=== PATIENT | female | born 1980 | race Caucasian/White ===

== ENCOUNTER 2023-02-03 14:20 | Observation (INO) | payer OTHER ==
[2023-02-03] MEDS ORDERED: ONDANSETRON 4 MG/2 ML VIAL IVPUSH ONE ×2 (14:49→15:05)
[2023-02-03] MEDS ORDERED: SODIUM CHLORIDE 0.9% 1000 ML INFUS.BAG IV ONE ×2 (14:49→15:05)
[2023-02-03] MEDS ORDERED: FAMOTIDINE 20 MG/50 ML IVPB 20 MG/50 ML MG IVPB ONE ×2 (14:49→15:08)
[2023-02-03] MEDS ORDERED: ACETAMINOPHEN 1000 MG/100 ML BAG IVPB ONE (15:05)
[2023-02-03] MEDS ORDERED: ONDANSETRON 4 MG/2 ML VIAL ONE (15:08)
[2023-02-03] MEDS ORDERED: ACETAMINOPHEN INJECTION 100 ML IVPB ONE (15:58)
[2023-02-03 16:18] LABS: INR 1.03 (0.83-1.09)
[2023-02-03 16:32] LABS: HEMATOCRIT 43.7 % (32.4-45.2); HEMOGLOBIN 14.4 G/dL (10.7-15.3); MCH 30.7 pg (25.7-33.7); MCHC 32.9 g/dl (32.0-36.0); MEAN CELL VOLUME 93.4 fl (80-96); MEAN PLT VOLUME 8.1 fl (7.5-11.1); PLATELET COUNT 418.4 10^3/uL (134-434); RBC 4.68 10^6/uL (3.60-5.2); RDW 13.7 % (11.6-15.6); WHITE BLOOD COUNT 11.3 10^3/uL (4.0-10.8)
[2023-02-03 17:33] LABS: ALBUMIN 4.4 g/dl (3.4-5.0); BLOOD UREA NITROGEN 8.6 mg/dl (7-18); CALCIUM 9.5 mg/dl (8.5-10.1); CREATININE 0.7 mg/dl (0.6-1.3); MAGNESIUM 1.8 mg/dL (1.8-2.4); POTASSIUM 4.6 mmol/L (3.5-5.1); SGOT/AST 15.7 U/L (15-37); SGPT/ALT 11.9 U/L (7-52); TOT PROT 6.7 g/dl (6.4-8.2)
[2023-02-03 17:48] LABS: PLATELET ESTIMATE SLT INCREASE
[2023-02-03 17:58] LABS: HCG,QUALITATIVE URINE Negative
[2023-02-03 18:19] LABS: EPITHELIAL CELLS FEW /hpf
[2023-02-03 18:41] LABS: VENOUS BASE EXCESS -0.5 mmol/L (-2-2); VENOUS O2 SATURATION 66.8 % (70-80); VENOUS PCO2 41.7 mmHg (38-52); VENOUS PH 7.388 (7.310-7.410)
[2023-02-03 18:49] LABS: BILIRUBIN,TOTAL 0.3 mg/dL (0.2-1)
[2023-02-03] MEDS ORDERED: ONDANSETRON 4 MG/2 ML VIAL IVPUSH PRN (19:55)
[2023-02-03] MEDS ORDERED: DOCUSATE SODIUM 100 MG CAPSULE (FP) PO PRN (19:55)
[2023-02-03 20:28] LABS: OPIATES, URI NEGATIVE (NEGATIVE)
[2023-02-03 20:29] LABS: PHENCYCLIDINE,URINE NEGATIVE (NEGATIVE)
[2023-02-03 20:34] LABS: COCAINE, UR NEGATIVE (NEGATIVE); METHADONE, UR NEGATIVE (NEGATIVE); URINE AMPHETAMINES NEGATIVE (NEGATIVE); URINE BARBITURATES NEGATIVE (NEGATIVE); URINE BENZODIAZEPINES NEGATIVE (NEGATIVE)
[2023-02-03 21:40] VITALS: BMI 23.4
[2023-02-03] MEDS ORDERED: ACETAMINOPHEN 325 MG TABLET (FP) ONE (21:48)
[2023-02-04] MEDS ORDERED: MONTELUKAST NA 10 MG TABLET PO SCH (00:03)
[2023-02-04] MEDS ORDERED: ALBUTEROL SO4 HFA INHALER IH PRN (00:04)
[2023-02-04 00:18] VITALS: RESP 18
[2023-02-04] MEDS ORDERED: GABAPENTIN 100 MG CAPSULE PO SCH (06:00)
[2023-02-04] MEDS ORDERED: METHOCARBAMOL 500 MG TABLET PO SCH ×2 (06:00→10:00)
[2023-02-04 07:51] LABS: HEMATOCRIT 41.9 % (32.4-45.2); HEMOGLOBIN 13.7 G/dL (10.7-15.3); MCH 30.8 pg (25.7-33.7); MCHC 32.7 g/dl (32.0-36.0); MEAN CELL VOLUME 94.1 fl (80-96); MEAN PLT VOLUME 7.8 fl (7.5-11.1); PLATELET COUNT 385.2 10^3/uL (134-434); RBC 4.45 10^6/uL (3.60-5.2); WHITE BLOOD COUNT 8.1 10^3/uL (4.0-10.8)
[2023-02-04 08:04] LABS: BLOOD UREA NITROGEN 8.6 mg/dl (7-18); CALCIUM 9.4 mg/dl (8.5-10.1); CREATININE 0.7 mg/dl (0.6-1.3); POTASSIUM 4.5 mmol/L (3.5-5.1)
[2023-02-04 09:39] VITALS: BP 110/72; PULSE 66; TEMP 98.4
[2023-02-04] MEDS ORDERED: DULOXETINE HCL PO SCH (10:00)
[2023-02-04] MEDS ORDERED: DULoxetine HCL 20 MG CAPSULE.DR PO SCH (10:00)
[2023-02-04] MEDS ORDERED: ACETAMINOPHEN 325 MG TABLET (FP) PO PRN (19:55)
== END 2023-02-04 12:09 | disposition left against medical advice (07) ==
LOC: FER 14:20 → FM/S 18:23
PROVIDERS: ADMIT Internal Medicine; ATTEND Internal Medicine
PROC: 3E033NZ Introduction of Analgesics, Hypnotics, Sedatives into Peripheral Vein, Percutaneous Approach (ICD-10-PCS; principal; 2023-02-03)
PROC: 3E033GC Introduction of Other Therapeutic Substance into Peripheral Vein, Percutaneous Approach (ICD-10-PCS; 2023-02-03)
PROC: 3E0337Z Introduction of Electrolytic and Water Balance Substance into Peripheral Vein, Percutaneous Approach (ICD-10-PCS; 2023-02-03)
DX: Z53.21 Procedure and treatment not carried out due to patient leaving prior to being seen by health care provider (principal); R55 Syncope and collapse; M54.2 Cervicalgia; G89.29 Other chronic pain
CPT/HCPCS: 0241U-QW; 36415; 70450-TC; 71045-TC-FY; 72125-TC; 80048; 80053; 80307; 81003; 81015; 82803; 83605; 83735; 84443; 84484; 84703; 85027; 85610; 85730; 93005; 96365; 96375; 97116-GP; 97161-GP; 99285-25; G0378